=== PATIENT | female | born 1975 | race Caucasian/White ===

== ENCOUNTER 2020-01-06 08:08 | Outpatient (CLI) | payer MEDICAID, SELFPAY ==
--- NOTE | 2020-01-06 08:16 | ECG_ITS ---
[facility] Test Date: 2020-01-06 Pat Name: Yisel Alexander Department: Room: Gender: Female Transmission Repairer: : 1975 Requested By: Comfort Thompson Order Number: [id number] Claribel MD: Jeffrey Phan M.D. Interpretive Statements NAME OF STUDY: TREADMILL STRESS TEST INDICATION: Chest Pain RESULTS TO DR GONZALEZ EXERCISE TREADMILL STRESS ORDERING PHYSICIAN: Reyes CLINICAL INFORMATION: Chest pain INTERPRETATION: 1. The patient exercised for 8 minutes and 10 seconds on a Rolando protocol. She reached a maximum heart rate of 169 beats per minute, which is 97 % of her maximum predicted heart rate. The test was stopped due to achieving the desired heart rate. 2. The baseline electrocardiogram reveals sinus rhythm and is essentially normal tracing aside from poor R wave progression leads V1 and V2. 3. With exercise, there were no ST segment changes to suggest ischemia. 4. The resting blood pressure was 103/73. The maximum blood pressure was 161/74. In recovery the patient's blood pressure increased briefly to 152/104. It came back down to normal at the end of the examination. 5. At maximum exercise, the patient achieved 10.2 METs with a rate pressure product of 272. 6. The patient experienced no chest pain or arrhythmias during the examination. CONCLUSION: 1. Normal exercise treadmill test. 2. Average exercise capacity for age. 3. Normal blood pressure response to exercise. Electronically Signed On 01-06-2020 19:10:22 CDT by Jeffrey Phan M.D. [id number]
[2020-01-06 08:26] VITALS: BMI 29.0
[2020-01-06 08:56] VITALS: BP 125/75; PULSE 96
== END 2020-01-06 08:09 | disposition home or self-care (01) ==
LOC: CDL 08:12
PROVIDERS: Family Provider Nurse Practitioner Family; Visit Provider Nurse Practitioner Family
DX: R07.9 Chest pain, unspecified (principal)
CPT/HCPCS: 93017

== ENCOUNTER 2020-02-15 08:11 | Outpatient (CLI) | payer MEDICAID, SELFPAY ==
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
== END 2020-02-15 08:12 | disposition home or self-care (01) ==
LOC: RADSHAW 08:14
PROVIDERS: PCP Nurse Practitioner Family; Visit Provider Internal Medicine
DX: Z12.31 Encounter for screening mammogram for malignant neoplasm of breast (principal)
CPT/HCPCS: 77067

== ENCOUNTER 2020-02-17 08:37 | Outpatient (CLI) | payer MEDICAID, SELFPAY ==
--- NOTE | 2020-02-17 08:45 | USCV_ITS ---
Benjamin Yisel Age: 44 Gender: F : 1975 Exam Date: 02/17/2020 08:40 Ordering Phys: Jonny Chambers MD ([email or web address]) Technologist: Stacey Lorenzo Exam Location: [facility] [place] Indication: SOB BP: / HR: 71 Rhythm: Sinus Technical Quality: MEASUREMENTS (Male / Female) Normal Values 2D ECHO LV Diastolic Diameter PLAX 3.3 cm 4.2 - 5.9 / 3.9 - 5.3 cm LV Systolic Diameter PLAX 1.9 cm IVS Diastolic Thickness 1.1 cm 0.6 - 1.0 / 0.6 - 0.9 cm IVS Systolic Thickness 1.1 cm LVPW Diastolic Thickness 1.8 cm 0.6 - 1.0 / 0.6 - 0.9 cm LVPW Systolic Thickness 2.4 cm LVOT Diameter 2.0 cm LV Ejection Fraction 2D Teich 75.6 % LV Ejection Fraction MOD 2C 68.9 % LV Ejection Fraction 2C AL 69.4 % LA Diameter 2.8 cm LA Width 3.1 cm LA Height 3.3 cm RA Width 2.4 cm RA Height 3.5 cm Aorta at Sinotubular Diameter 3.0 cm M-MODE LV Diastolic Diameter MM 3.6 cm 4.2 - 5.9 / 3.9 - 5.3 cm LV Systolic Diameter MM 2.6 cm LV Ejection Fraction MM Teich 54.9 % IVS Diastolic Thickness MM 1.0 cm 0.6 - 1.0 / 0.6 - 0.9 cm IVS Systolic Thickness MM 1.1 cm LVPW Diastolic Thickness MM 1.0 cm 0.6 - 1.0 / 0.6 - 0.9 cm LVPW Systolic Thickness MM 1.1 cm Aortic Annulus Diameter 2.8 cm LA Ao Ratio MM 1.0 MV E Point Septal Separation 0.6 cm DOPPLER AV Peak Velocity 116.0 cm/s LVOT Peak Velocity 107.0 cm/s AV Area Cont Eq vti 2.9 cm squared AV Area Cont Eq pk 3.0 cm squared MV Area PHT 3.7 cm squared Mitral E to A Ratio 0.9 MV E' Velocity 71.0 cm/s TR Peak Velocity 269.0 cm/s TR Peak Gradient 28.9 mmHg TR Mean Velocity 177.0 cm/s TR Mean Gradient 13.4 mmHg TR Velocity Time Integral 67.1 cm TV Peak E Velocity 50.0 cm/s Right Atrial Pressure 3.0 mmHg Pulmonary Artery Systolic Pressu 31.9 mmHg PV Peak Velocity 62.0 cm/s RV Acceleration Time 0.1 s RV Ejection Time 0.4 s RV AcT/ET 0.4 FINDINGS Left Ventricle Normal left ventricular cavity size. Normal left ventricular systolic function. No regional wall motion abnormalities. Left ventricular ejection fraction is estimated at 54 %. Grade I/IV diastolic dysfunction (abnormal relaxation filling pattern), normal to mildly elevated filling pressures. Right Ventricle The right ventricle is normal in size and function. Right Atrium The right atrium is normal in size. Left Atrium The left atrium is normal in size. Mitral Valve Structurally normal mitral valve without significant stenosis or prolapse. There is no mitral regurgitation. Aortic Valve Structurally normal aortic valve without significant sclerosis or stenosis. There is no aortic regurgitation. Tricuspid Valve Structurally normal tricuspid valve without significant stenosis or regurgitation. Pulmonary artery systolic pressure is normal. Pulmonic Valve Structurally normal pulmonic valve without significant stenosis. There is no pulmonic regurgitation. Pericardium Normal pericardium without effusion. Aorta Normal ascending aorta dimension. CONCLUSIONS 1-Normal left ventricular cavity size. Normal left ventricular systolic function. No regional wall motion abnormalities. Left ventricular ejection fraction is estimated at 54 %. Grade I/IV diastolic dysfunction (abnormal relaxation filling pattern), normal to mildly elevated filling pressures. 2-There is no pericardial effusion. 3-No significant valve abnormalities. 4-Pulmonary artery systolic pressure is within normal limits. 5-Right atrial pressure is around 5 mm of mercury. 6-There are no prior echocardiogram studies to compare. Jonny Chambers MD (Electronically Signed) Final Date: 18 February 2020 14:35 S
== END 2020-02-17 08:38 | disposition home or self-care (01) ==
LOC: RAD 08:38
PROVIDERS: PCP Nurse Practitioner Family; Visit Provider Internal Medicine Cardiovascular Disease
DX: R06.02 Shortness of breath (principal); I51.81 Takotsubo syndrome
CPT/HCPCS: 93306

== ENCOUNTER 2020-07-08 12:54 | Outpatient (CLI) | payer MEDICARE, MEDICAID, SELFPAY ==
--- NOTE | 2020-07-08 13:23 | XR_ITS ---
WS: [id number] CERVICAL SPINE TECHNIQUE: 3 views of the cervical spine CLINICAL INFORMATION: BACK PAIN, NECK PAIN COMPARISON: None. FINDINGS: Straightening with slight reversal of the normal cervical lordosis. Normal C1-2 articulation. Normal prevertebral soft tissues. Normal dens. Mild spondylitic changes. XR/XR cervical spine 3V* 72074 IMPRESSION: 1. Straightening with slight reversal of the normal cervical lordosis. 2. Mild spondylitic changes. 3. Normal C1-2 articulation
--- NOTE | 2020-07-08 13:23 | XR_ITS ---
WS: [id number] LUMBAR SPINE TECHNIQUE: 3 views of the lumbar spine CLINICAL INFORMATION: BACK PAIN, NECK PAIN COMPARISON: None. FINDINGS: Five [id number]-[id number] lumbar vertebral bodies. Mild lumbar curve convex right. Disc space heights are well preserved. No compression fractures. No spondylolisthesis. Visualized sacroiliac joints are norm al. Normal visualized soft tissues. Partially visualized bowel gas pattern is normal. XR/XR lumbar spine 2-3V* 96600 IMPRESSION: 1. Mild lumbar curve convex right. 2. No acute compression fractures. 3. Mild facet arthropathy L5-S1. 4. Disc space heights and vertebral body heights are relatively well-preserved .
== END 2020-07-08 12:55 | disposition home or self-care (01) ==
LOC: RADWPI 13:01
PROVIDERS: PCP Nurse Practitioner Family; Visit Provider Nurse Practitioner Family
DX: M54.2 Cervicalgia (principal); M47.817 Spondylosis without myelopathy or radiculopathy, lumbosacral region
CPT/HCPCS: 72040; 72100

== ENCOUNTER 2020-08-18 11:59 | Emergency (ER) | payer OTHER, MEDICARE, MEDICAID, SELFPAY ==
[2020-08-18 12:31] VITALS: BP 133/80; PULSE 73; RESP 18; TEMP 36.6; O2SAT 97; BMI 28.3
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
[2020-08-18 14:17] VITALS: BP 133/80; PULSE 73; RESP 16; O2SAT 97
[2020-08-18 14:30] VITALS: BP 133/80; PULSE 73; RESP 16; O2SAT 97
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
== END 2020-08-18 16:14 | disposition home or self-care (01) ==
PROVIDERS: Emergency Provider Physician Assistant; PCP Nurse Practitioner Family
DX: S16.1XXA Strain of muscle, fascia and tendon at neck level, initial encounter (principal); S39.012A Strain of muscle, fascia and tendon of lower back, initial encounter; M25.511 Pain in right shoulder; Z87.891 Personal history of nicotine dependence; V89.2XXA Person injured in unspecified motor-vehicle accident, traffic, initial encounter
CPT/HCPCS: 72040; 72072; 72100; 73030; 73502; 99283

== ENCOUNTER 2021-02-17 08:08 | Outpatient (CLI) | payer MEDICARE, MEDICAID, SELFPAY ==
--- NOTE | 2021-02-17 08:00 | MR_ITS ---
WS: [id number] MRI HEAD WITH CONTRAST TECHNIQUE: Sagittal T1, T2 axial, T2 axial FLAIR, axial susceptibility weighted imaging, axial diffus ion weighted images, and coronal T2 images were obtained. Pre and post-T1 axial and post T1 coronal i mages. ADC and FSPGR images. CLINICAL INFORMATION: OCCIPITAL ALFONSO; FACIAL PAIN SYNDROME; DIZZINESS COMPARISON: MRI 2013. CT May 2019 FINDINGS: No evidence of restricted diffusion to suggest acute ischemia. Normal sequeira-white differentiation. No suspicious intracranial signal abnormalities. Normal posterior fossa. Normal vascular flow voids at t he skull base. No extra-axial fluid collections. No evidence of mass or mass effect. Paranasal sinuses and mastoid air cells well aerated. No hemosiderin on susceptibly weighted images. Normal optic chiasm and pituitary infundibulum. Cavernous sinuses and Meckel's cave appear normal. Tr igeminal nerve root entry zones appear normal. Temporal lobes and hippocampal formations are normal i n appearance. No abnormal intracranial enhancement. Normal visualized dural venous sinuses. MR/MR head wo/w con [id number] IMPRESSION: 1. No evidence restricted diffusion to suggest acute ischemia. 2. No suspicious intracranial signal abnormalities. 3. Normal optic chiasm and pituitary infundibulum. Normal visualized cavernous sinuses and Meckel's cave. 4. Temporal lobes and hippocampal formations are normal in appearance. 5. No abnormal intracranial enhancement. 6. No hemosiderin on the susceptibly weighted images. 7. No significant changes compared to 2014.
[2021-02-17] MEDS: gadobenate dimeglumine 20 mL vial IV (09:03)
== END 2021-02-17 08:09 | disposition home or self-care (01) ==
PROVIDERS: PCP Nurse Practitioner Family; Visit Provider Psychiatry & Neurology Neurology
DX: R51.9 Headache, unspecified (principal); R42 Dizziness and giddiness
CPT/HCPCS: 70553; A9577

== ENCOUNTER 2021-04-12 13:13 | Outpatient (CLI) | payer MEDICARE, MEDICAID, SELFPAY ==
--- NOTE | 2021-04-12 13:19 | XR_ITS ---
WS: [id number] ELBOW LEFT TECHNIQUE: 3 views of the left elbow CLINICAL INFORMATION: ELBOW JOINT PAIN,LEFT COMPARISON: None. FINDINGS: Mild dorsal soft tissue edema. No significant joint effusion. Distal humerus is normal in appearance. Normal radial head. Normal olecranon. No evidence of acute fracture dislocation. XR/XR elbow LT min 3V* 80158 IMPRESSION: Mild dorsal soft tissue edema. No acute fractures.
== END 2021-04-12 13:14 | disposition home or self-care (01) ==
PROVIDERS: PCP Nurse Practitioner Family; Visit Provider Nurse Practitioner Family
DX: M25.522 Pain in left elbow (principal); R60.0 Localized edema
CPT/HCPCS: 73080

== ENCOUNTER 2021-04-21 11:03 | Emergency (ER) | payer MEDICARE, MEDICAID, SELFPAY ==
[2021-04-21 11:41] VITALS: BP 112/79; PULSE 69; RESP 18; TEMP 37.1; O2SAT 95; BMI 31.9
[2021-04-21] MEDS: acetaminophen 500 mg Tablet 1000 MG PO (12:46)
[2021-04-21] MEDS: orphenadrine 30 mg/mL Inj 2 mL 60 MG IM (12:47)
[2021-04-21] MEDS: triamcinolone 40 mg/mL SDV IM (12:53)
--- NOTE | 2021-04-21 12:56 | XR_ITS ---
WS: [id number] LUMBAR SPINE: 3 VIEWS TECHNIQUE: AP, lateral and L5-S1 spot. HISTORY: back pain COMPARISON: 08/18/2020 Very mild straightening of the normal lumbar lordosis. Disc spaces are normal. No loss of disc space or vertebral body height. SI joints are symmetric bilaterally. No soft tissue abnormalities. XR/XR lumbar spine 2-3V* 04616 IMPRESSION: Normal lumbar spine.
--- NOTE | 2021-04-21 13:33 | W.ED.GENADLT ---
HPI - General Adult General: Chief complaint: Back Pain/Injury Stated complaint: FELL LAST PM/LOW BACK INJURY Time Seen by Provider: 04/21/21 11:49 History of Present Illness: HPI narrative: CC: Back pain HPI: [46]yo patient w/ episode radiating back pain pain presenting to the ED with acutely worsening chronic pain x 1 days. Pain started 1 day ago while patient was walking outside and stepped into a hole. Since then, she felt something popped in her back and developed sharp radiating back pain to the L thigh worse with ambulation ambulating. P Today, patients denies trauma to the back, fever/chill/IVDU, LE weakness, saddle anesthesia/bowel incontinence/bladder incontinence, or hx of recent weight loss or cancer. In addition, he does not have a history of kidney stone or urinary symptoms/hx of UTI. Onset: chronic, acutely worsening symptoms x 1 days Duration: 1days Location: Back pain with radiation to the L side Severity: moderate/severe Review of Systems Narrative: Constitutional: No fever, no chills. HEENT: No vision changes CV: No chest pain, no palpitations PULM: No cough, no dyspnea. GI: No abdominal pain, no N/V/D. : No dysuria MSKEL: No edema SKIN: No new rashes, no lesions. NEURO: No headache, no focal weakness. HEME: No visible bruises PSYCH: Normal mood BACK: [L]-sided lumbar paraspinal pain radiating to the affected L thigh PFSH ED PFSH: Medical History Chest pressure Shortness of breath Family History Sister Myocardial infarction Mother Cancer Colon CA COPD (chronic obstructive pulmonary disease) Father Diabetes Other CAD (coronary artery disease) Social History Smoking and tobacco status: former smoker Alcohol intake: never Physical Exam Narrative: EXAM NARRATIVE: Head: Atraumatic Eyes: PERRL, conjunctiva without injection ENT: Mucous membrane moist NECK: Supple without lymphadenopathy LUNGS: CTA CV: RRR ABDOMEN: Soft, nontender EXTREMITY: Normal ROM, 5/5 strength in hip/knee/ankle f/e bilaterally, sensation intact bilaterally in the LE SKIN: No rash or erythema NEURO: Awake and alert. No focal motor deficits. PSYCH: Normal mood and affect. : No saddle anesthesia BACK: No midline tenderness, no step off, obvious deformity, hip stable, []paraspinal lumbar tenderness with radiation to the [] side Course Vital Signs: Vital signs: Vital Signs Temperature 98.7 F 04/21/21 11:41 Pulse Rate 69 04/21/21 11:41 Respiratory Rate 18 04/21/21 11:41 Blood Pressure 112/79 04/21/21 11:41 Pulse Oximetry 95 04/21/21 11:41 MDM - General Adult MDM Narrative: Medical decision making narrative: [46]yo patient w/ hx of episodic back pain presenting to the ED with acute worsening lumbar pain with radiation to the L f leg 1 day, now has pain with ambulation. Neurological exam including LE exam intact. The Patient is able to bear weight on legs and ambulate with moderate pain. No red flags of IVDU/fever, hx or symptomatology of cancer w/ mets to the bones, neurological findings or bowel or bladder incontinence, or acute trauma/fracture of the vertebral columns. Workup: XR lumbar 3 views Intervention: Tylenol 500mg, Norflex, kenalog injection [1:45pm] On reassessment, the patient reports the pain is significantly improved with medications. Patient is now able to ambulate in the ED with only mild pain. At the present time, I have discussed the importance for the patient to follow up with orthopedics CANDICE and the patient agrees. No suspicion for acute cord compression at this time. XR did not show any signs of acute fracture. No suspicion for cauda equina or cord compression presently. I have given patient follow up with our case packer and sealer to be seen by our outpatient Orthopedic spine for evaluation of herniated disc and nerve impingement. Patient aware of a call from our case packer and sealer to schedule for appointment(s) and verbalizes understanding of the importance of following up. Rx: Tylenol, lidocaine patch and norflex PRN back pain Disposition: Discharge. Patient is given SRP for any focal weakness, intractable pain, fever/chill, any signs of bowel or bladder incontinence. Patient is instructed to follow up with the orthopedics provider. I have provided an additional orthopedic referral for the patient should the patient need it. Patient verbalizes understanding and plans to do so in the next fews. Imaging Data^: Other Imaging: Radiologist's impression: [facility] [place], [place] [address]PAcn ReportSigned Patient: Yisel Alexander #: [id number]: [id number]#:[id number]/Sex: 46 / FADM Date: 04/21/21Loc: ERRoom/Bed:Attending Dr: Ordering Provider/Ordering MD: Florentin Marie MD Date of Service: 04/21/21 Procedure(s): XR lumbar spine 2-3V* 17710 Accession Number(s): [id number] Report Number: [id number] WS: [id number] LUMBAR SPINE: 3 VIEWS TECHNIQUE: AP, lateral and L5-S1 spot. HISTORY: back pain COMPARISON: 08/18/2020 Very mild straightening of the normal lumbar lordosis. Disc spaces are normal. No loss of disc space or vertebral body height. SI joints are symmetric bilaterally. No soft tissue abnormalities. XR/XR lumbar spine 2-3V* [id number] IMPRESSION: Normal lumbar spine. Dictated By:Martina Cruz DOSigned By:Martina Cruz DOSigned Date/Time:04/21/21 1318DD/ 1317 Discharge Plan Discharge Patient Disposition: Home Clinical Impression: Lumbar radiculopathy, Back pain Condition: Stable Prescriptions: New acetaminophen 500 mg tablet 500 mg PO Q6H PRN (Reason: pain) 7 Days Qty: 28 RF: 0 orphenadrine citrate 100 mg tablet extended release 100 mg PO BID PRN (Reason: pain) 10 Days Qty: 20 RF: 0 lidocaine 5 % adhesive patch,medicated 1 patch topical DAILY PRN (Reason: pain) 10 Days Qty: 10 RF: 0 No Action sumatriptan succinate [Imitrex] 50 mg tablet See Rx Instructions PO .COMPLEX RF: 0 fluticasone propionate 50 mcg/actuation spray,suspension 1 spray INTRANASAL BID PRNRF: 0 nitroglycerin [Nitrostat] 0.4 mg tablet, sublingual 0.4 mg SUBLINGUAL Q5M PRN (Reason: chest pain) Qty: 25 RF: 6 metoprolol succinate 25 mg tablet extended release 24 hr 25 mg PO DAILY Qty: 30 RF: 6 magnesium oxide 400 mg magnesium capsule 400 mg PO DAILY Qty: 30 RF: 6 isosorbide mononitrate 30 mg tablet extended release 24 hr 15 mg PO BID Qty: 30 RF: 6 Discharge Orders: Discharge ED (Routine); Ordered 04/21/21 Ordered By: Florentin Marie Referrals: Comfort Thompson FNP [Primary Care Provider] - Discharge Diet: Advance as tolerated Discharge Activity: Resume usual activity Patient Instructions: Back Pain (ED) Activity Restrictions/Additional Instructions: Please come back to the emergency we have any weakness in your bladder or bowel, if you have any numbness, worsening pain, or any new or concerning complaints. Our case packer and sealer will have you follow-up with our Orthopedic spien doctor in the next few days. You would be expected to have a phone call with our case packer and sealer who will put you on the schedule. Coding Level of Care Code ED Inspector Bicycle for Nalini Walters
--- NOTE | 2021-04-21 14:16 | DCPLANNER ---
process improvement manager had message to schedule a follow up appointment for patient with ortho. process improvement manager called the ortho clinic, spoke with Estephanie, gave clinic patients information. process improvement manager was told that patients information would be printed and reviewed. Clinic will call patient with appointment information.
--- NOTE | 2021-07-09 16:14 | DCPLANNER ---
Patient had a follow up appointment scheduled with ortho - patient did attend appointment.
== END 2021-04-21 14:35 | disposition home or self-care (01) ==
PROVIDERS: Emergency Provider Emergency Medicine; PCP Nurse Practitioner Family
DX: M54.16 Radiculopathy, lumbar region (principal); Z87.891 Personal history of nicotine dependence
CPT/HCPCS: 72100; 96372; 99283; J2360; J3301

== ENCOUNTER → 2021-04-27 10:59 | Outpatient (BNVA) | payer MEDICARE, MEDICAID, SELFPAY | PROVIDERS: PCP Nurse Practitioner Family; Visit Provider Physician Assistant | DX: M54.16 Radiculopathy, lumbar region (principal) | CPT/HCPCS: 72120 ==

== ENCOUNTER 2021-05-23 06:00 | Outpatient (RCR) | payer MEDICARE, MEDICAID, SELFPAY | END 2021-06-16 23:59 | disposition home or self-care (01) | LOC: SPT 06:00 | PROVIDERS: PCP Nurse Practitioner Family; Referring Provider Physician Assistant; Visit Provider Physician Assistant | DX: M54.9 Dorsalgia, unspecified (principal) | CPT/HCPCS: 97110; 97161 ==

== ENCOUNTER 2021-06-07 10:19 | Outpatient (CLI) | payer MEDICARE, MEDICAID, SELFPAY ==
--- NOTE | 2021-06-07 10:34 | MM_ITS ---
WS: [id number] BILATERAL DIGITAL SCREENING MAMMOGRAPHY WITH CAD CLINICAL INFORMATION: SCREENING HISTORY: Screening mammogram. No current complaints. COMPARISON: February 15, 2020 TECHNIQUE: Bilateral CC and MLO views. FINDINGS: Scattered fibroglandular densities bilaterally. No suspicious focal mass, asymmetry, calcifications, or architectural distortion. No evidence of malignancy. MM/[place] [id number] IMPRESSION: BI-RADS: 1-Negative FOLLOW UP: 1 Year Follow-up Recommend return to annual screening mammography.
== END 2021-06-07 10:20 | disposition home or self-care (01) ==
PROVIDERS: PCP Nurse Practitioner Family; Visit Provider Nurse Practitioner Family
DX: Z12.31 Encounter for screening mammogram for malignant neoplasm of breast (principal)
CPT/HCPCS: 77067

== ENCOUNTER 2021-06-17 06:00 | Outpatient (RCR) | payer MEDICARE, MEDICAID, SELFPAY | END 2021-07-17 23:59 | disposition home or self-care (01) | LOC: SPT 06:00 | PROVIDERS: PCP Nurse Practitioner Family; Referring Provider Physician Assistant; Visit Provider Physician Assistant | DX: M54.9 Dorsalgia, unspecified (principal) | CPT/HCPCS: 97110 ==

== ENCOUNTER 2021-07-18 06:00 | Outpatient (RCR) | payer MEDICARE, MEDICAID, SELFPAY | END 2021-08-03 23:59 | disposition home or self-care (01) | LOC: SPT 06:00 | PROVIDERS: PCP Nurse Practitioner Family; Referring Provider Physician Assistant; Visit Provider Physician Assistant | DX: M54.9 Dorsalgia, unspecified (principal) | CPT/HCPCS: 97110 ==

== ENCOUNTER 2021-09-05 06:00 | Outpatient (RCR) | payer MEDICARE, MEDICAID, SELFPAY | END 2021-09-14 23:59 | disposition home or self-care (01) | LOC: SPT 06:00 | PROVIDERS: PCP Nurse Practitioner Family; Referring Provider Nurse Practitioner Family; Visit Provider Nurse Practitioner Family | DX: H81.12 Benign paroxysmal vertigo, left ear (principal) | CPT/HCPCS: 95992; 97110; 97162 ==

== ENCOUNTER → 2021-10-24 10:07 | Outpatient (BNVA) | payer MEDICARE, MEDICAID, SELFPAY | PROVIDERS: PCP Nurse Practitioner Family; Visit Provider Internal Medicine Cardiovascular Disease | DX: Z01.810 Encounter for preprocedural cardiovascular examination (principal); R00.2 Palpitations; R07.89 Other chest pain; R06.02 Shortness of breath; N05.5 Unspecified nephritic syndrome with diffuse mesangiocapillary glomerulonephritis; F17.200 Nicotine dependence, unspecified, uncomplicated | CPT/HCPCS: 99214 ==

== ENCOUNTER 2021-12-22 06:00 | Outpatient (RCR) | payer MEDICARE, MEDICAID, SELFPAY | END 2022-01-14 23:59 | disposition home or self-care (01) | LOC: SPT 06:00 | PROVIDERS: PCP Nurse Practitioner Family; Referring Provider Nurse Practitioner Family; Visit Provider Nurse Practitioner Family | DX: Z98.1 Arthrodesis status (principal); R29.898 Other symptoms and signs involving the musculoskeletal system; M48.061 Spinal stenosis, lumbar region without neurogenic claudication; M54.16 Radiculopathy, lumbar region | CPT/HCPCS: 97110; 97161 ==

== ENCOUNTER 2022-01-15 06:00 | Outpatient (RCR) | payer MEDICARE, MEDICAID, SELFPAY | END 2022-02-14 23:59 | disposition home or self-care (01) | LOC: SPT 06:00 | PROVIDERS: PCP Nurse Practitioner Family; Visit Provider Nurse Practitioner Family | DX: R29.898 Other symptoms and signs involving the musculoskeletal system (principal); M48.061 Spinal stenosis, lumbar region without neurogenic claudication; M54.16 Radiculopathy, lumbar region; Z98.1 Arthrodesis status | CPT/HCPCS: 97110 ==

== ENCOUNTER 2022-02-14 12:49 | Emergency (ER) | payer MEDICARE, MEDICAID, SELFPAY ==
[2022-02-14 13:16] VITALS: BP 111/78; PULSE 104; RESP 17; TEMP 37.7; O2SAT 95; BMI 32.5
--- NOTE | 2022-02-14 13:39 | ED_ITS ---
HPI - General Adult General: Chief complaint: Fever Stated complaint: Fever/Headache/Sore throat Time Seen by Provider: 02/14/22 13:25 History of Present Illness: Patient is a 46-year-old female with history of COPD, seasonal allergies presenting to the emergency room for evaluation of fever, headache, sore throat and nasal congestion since yesterday night. Patient tells me that yesterday she did not feel well and had body aches. Earlier today, patient noticed that all the symptoms worsened. Patient has any productive cough, shortness of breath, abdominal pain, loss of taste, diarrhea melena/hematochezia. Patient has no complaints. Patient has any sick contact at home. Patient has not been tested for COVID. Onset: yesterday night Duration:ongoing Location:home Severity:mild/moderate Associated symptoms: Reports malaise; Deny chest pain, dyspnea, nausea, rash, palpitations or vomiting Review of Systems Const: Reports: fever(s), chills, fatigue, malaise and other (+generalized weakness) Eyes: Denies: change in vision ENMT: Reports: throat pain, mouth pain (+sore throat) and other (+nasal c ongestion) Card: Denies: chest pain or palpitations Resp: Denies: dyspnea or non-productive cough GI: Denies: abdominal pain, nausea, vomiting or diarrhea : Denies: dysuria Musc: Denies: extremity pain Skin/Breast: Denies: rash or new lesions Neuro: Denies: weakness in extremities Psych: Reports: other (Normal mood) Germain/Lymph: Denies: easy bruising PFSH ED PFSH: Medical History Chest pressure Shortness of breath Family History Sister Myocardial infarction Mother Cancer Colon CA COPD (chronic obstructive pulmonary disease) Father Diabetes Other CAD (coronary artery disease) Social History Smoking and tobacco status: current every day smoker Alcohol intake: never Physical Exam Const: COMMON NORMALS: alert HENMT: COMMON NORMALS: atraumatic HEAD & SCALP: atraumatic MOUTH: moist mucous membranes not abnormal Eye: COMMON NORMALS: EOMs intact bilaterally and conjunctivae normal CONJUNCTIVA: Yes conjunctivae normal Neck/C-Spine: COMMON NORMALS: full ROM and supple Resp: COMMON NORMALS: normal respiratory effort and clear to auscultation bilaterally AUSCULTATION: clear to auscultation bilaterally Cardio: COMMON NORMALS: regular rate RATE: regular rate GI: COMMON NORMALS: Soft to palpation and non-tender PALPATION: Yes Soft to palpation Extremity: COMMON NORMALS: full ROM Neuro: SENSORIUM/ORIENTATION: Yes alert MOTOR EXAM: No Abnormal motor strength present and Other motor observations present (no focal motor deficits) Psych: COMMON NORMALS: speech normal SPEECH: Yes normal speech MOOD & AFFECT: Yes euthymic mood Course Vital Signs: Vital signs: Vital Signs Temperature 99.8 F H 02/14/22 13:16 Pulse Rate 104 H 02/14/22 13:16 Respiratory Rate 17 02/14/22 13:16 Blood Pressure 111/78 02/14/22 13:16 Pulse Oximetry 95 02/14/22 13:16 Oxygen Delivery Me thod 02/14/22 13:16 MDM - General Adult Medical Decision Making Patient is a 46-year-old female with history of COPD, seasonal allergies presenting to the emergency room for evaluation of fever, headache, sore throat and nasal congestion since yesterday night. On physical exam, patient has a low- grade fever 99.7. Patient was noted to be mildly tachycardic on arrival. Heart rate improved after IVF. White count 4.9. Symptoms are consistent with a viral infection at this time. Patient received IVF, Tylenol has been able to tolerate p.o. in the emergency r oom. Patient is COVID-positive today. Patient has no signs of respiratory distress. No signs of dehydration. At the present time, patient is a candidate for outpatient treatment including Paxlovid. Rx tylenol PRN fever, and zofran PRN nausea/vomiting, paxlovid for covid Disposition: Discharge. Patient counseled regarding diagnostic impression, treatment plan. Patient given ED strict return precautions to return for continuation, worsening, or development of new symptoms. Instructed to f/u w/ PCP regarding symptoms today. Patient verbalized understanding. Lab Data : 02/14/22 14:05 02/14/22 14:05 Laboratory Results WBC 4.9 10^3/uL (4.0-10.0) 02/14/22 14:05 RBC 3.89 10^6/uL (4.1-5.3) L 02/14/22 14:05 Hgb 12.3 g/dL (11.5-15.3) 02/14/22 14:05 Hct 36.1 % (37.0-47.0) L 02/14/22 14:05 MCV 92.8 fl (81-99) 02/14/22 14:05 MCH 31.6 pg (28.0-34.0) 02/14/22 14:05 MCHC 34.1 g/dL (30.0-36.0) 02/14/22 14:05 RDW 11.8 % (12.1-15.1) L 02/14/22 14:05 Plt Count 238 10^3/cmm (130-400) 02/14/22 14:05 MPV 9.4 fL (7.4-10.4) 02/14/22 14:05 Neut % (Auto) 71.7 % 02/14/22 14:05 Lymph % (Auto) 11.8 % 02/14/22 14:05 Beaver % (Auto) 15.5 % 02/14/22 14:05 Eos % (Auto) 0.2 % 02/14/22 14:05 Baso % (Auto) 0.4 % 02/14/22 14:05 Neut # (Auto) 3.51 10^3/uL (1.8-7.7) 02/14/22 14:05 Lymph # (Auto) 0.6 10^3/uL (0.8-4.8) L 02/14/22 14:05 Beaver # (Auto) 0.8 10^3/uL (0.2-0.9) 02/14/22 14:05 Eos # (Auto) 0.0 10^3/uL (0.0-0.8) 02/14/22 14:05 Baso # (Auto) 0.0 10^3/uL (0.0-0.1) 02/14/22 14:05 Nucleated RBC % (auto) 0 % 02/14/22 14:05 Nucleated RBCs # 0.0 /100WBC 02/14/22 14:05 Sodium 137 mmol/L (136-145) 02/14/22 14:05 Potassium 3.8 mmol/L (3.5-5.1) 02/14/22 14:05 Chloride 102 mmol/L (98-107) 02/14/22 14:05 Carbon Dioxide 26 mmol/L (22-29) 02/14/22 14:05 Anion Gap 12.8 (5-19) 02/14/22 14:05 BUN 11 mg/dL (6-20) 02/14/22 14:05 Creatinine 0.8 mg/dL (0.5-0.9) 02/14/22 14:05 GFR Calculation 76.6 mL/min (90-130) L 02/14/22 14:05 Glucose 102 mg/dL (65-115) 02/14/22 14:05 Calculated Osmolality 284 mOsm/kg (285-295) L 02/14/22 14:05 Calcium 8.4 mg/dL (8.5-10.5) L 02/14/22 14:05 Coronavirus 229E (PCR) Not detected (NOT DETECT) 02/14/22 14:05 Influenza Type A Ag Negative (Negative) 02/14/22 14:05 Influenza Type B Ag Negative (Negative) 02/14/22 14:05 SARS-CoV-2 (PCR) Detected (NOT DETECT) A 02/14/22 14:05 Discharge Plan Discharge Patient Disposition: Home Clinical Impression: Fever, Body aches, Sore throat Condition: Stable Prescriptions: New acetaminophen 500 mg tablet 500 mg PO Q6H PRN (Reason: pain) 5 Days Qty: 20 0RF ondansetron 4 mg tablet,disintegrating 4 mg PO TID PRN (Reason: nausea and vomiting) 4 Days Qty: 12 0RF Paxlovid (EUA) 150 mg x 2- 100 mg tablet See Rx Instructions .ROUTE .COMPLEX Qty: 30 0RF Rx Instructions: take TWO 150 mg tablets of nirmatrelvir with ONE 100 mg tablet of ritonavir twice daily for 5 days No Action magnesium oxide 400 mg magnesium capsule 400 mg PO DAILY Qty: 30 6RF metoprolol succinate 25 mg tablet extended release 24 hr 25 mg PO DAILY Qty: 90 4RF nitroglycerin [Nitrostat] 0.4 mg tablet, sublingual 0.4 mg SUBLINGUAL Q5M PRN (Reason: chest pain) Qty: 25 6RF Rx Instructions: do not exceed 3 doses per episode prednisone 20 mg tablet 40 mg PO DAILY Rx Instructions: rx filled 02/08/22 5d/s Tylenol Ex Str Rapid Release 500 mg Tablet 1,000 mg PO Q6H PRN (Reason: Pain) Vitamin D3 125 mcg (5,000 unit) Tablet 125 mcg PO DAILY Discharge Orders: Discharge ED (Routine); Ordered 02/14/22 Ordered By: Florentin Marie Referrals: Comfort Thompson FNP [Primary Care Provider] - Discharge Diet: Advance as tolerated Discharge Activity: Increase activity as tolerated Patient Instructions: COVID-19 (Coronavirus Disease 2019) (ED) Activity Restrictions/Additional Instructions: Come back to the emergency room if your symptoms worsen, have any shortness of breath, fever/chills, dehydration, inability tolerate food or drinks, any difficulty breathing, or any new or concerning complaints. Coding Level of Care Code ED Wash Oil Cooler Operator for Nalini Fwnakul Exam Comprehensive
[2022-02-14] MEDS: acetaminophen 500 mg Tablet 1000 MG PO (13:45)
[2022-02-14] MEDS: sodium chloride 0.9% 1,000 ML 999 ML IV (13:59)
[2022-02-14 14:12] LABS: Basophils % 0.4 %; Eosinophils % 0.2 %; Hematocrit 36.1 % (37.0-47.0); Hemoglobin 12.3 g/dL (11.5-15.3); Lymphocytes # 0.6 10^3/uL (0.8-4.8); Lymphocytes % 11.8 %; Mean Corpuscular HGB Conc 34.1 g/dL (30.0-36.0); Mean Corpuscular Hemoglobin 31.6 pg (28.0-34.0); Mean Corpuscular Volume 92.8 fl (81-99); Mean Platelet Volume 9.4 fL (7.4-10.4); Monocytes # 0.8 10^3/uL (0.2-0.9); Monocytes % 15.5 %; Neutrophils # 3.51 10^3/uL (1.8-7.7); Neutrophils % 71.7 %; Nucleated Red Blood Cells % 0 %; Platelet Count 238 10^3/cmm (130-400); Red Blood Count 3.89 10^6/uL (4.1-5.3); Red Cell Distribution Width 11.8 % (12.1-15.1); White Blood Count 4.9 10^3/uL (4.0-10.0)
[2022-02-14 14:34] LABS: Anion Gap 12.8 (5-19); Blood Urea Nitrogen 11 mg/dL (6-20); Calcium 8.4 mg/dL (8.5-10.5); Carbon Dioxide 26 mmol/L (22-29); Chloride 102 mmol/L (98-107); Glomerular Filtration Rate 76.6 mL/min (90-130); Glucose 102 mg/dL (65-115); Osmolality Calculated 284 mOsm/kg (285-295); Potassium 3.8 mmol/L (3.5-5.1); Sodium 137 mmol/L (136-145)
[2022-02-14 14:35] LABS: Influenza A by IFA Negative (Negative); Influenza B by IFA Negative (Negative)
[2022-02-14 16:00] LABS: Adenovirus Not Detected (NOT DETECT); Chlamydia Pneumoniae Not Detected (NOT DETECT); Coronavirus 229E,HKU1,NL63,OC4 Not Detected (NOT DETECT); Human Metapneumovirus Not Detected (NOT DETECT); Human Rhinovirus/Enterovirus Not Detected (NOT DETECT); Influenza A Not Detected (NOT DETECT); Influenza A H1 Not Detected (NOT DETECT); Influenza A H1-2009 Not Detected (NOT DETECT); Influenza A H3 Not Detected (NOT DETECT); Influenza B Not Detected (NOT DETECT); Mycoplasma Pneumoniae Not Detected (NOT DETECT); Parainfluenza Virus Type 1 Not Detected (NOT DETECT); Parainfluenza Virus Type 2 Not Detected (NOT DETECT); Parainfluenza Virus Type 3 Not Detected (NOT DETECT); Parainfluenza Virus Type 4 Not Detected (NOT DETECT); Respiratory Syncytial Virus A Not Detected (NOT DETECT); Respiratory Syncytial Virus B Not Detected (NOT DETECT); SARS-COV-2 Detected (NOT DETECT)
[2022-02-14 16:20] VITALS: BP 117/69; PULSE 88; RESP 17; TEMP 37.1; O2SAT 96
[2022-02-14 16:25] VITALS: BP 117/69; PULSE 88; RESP 17; TEMP 37.1; O2SAT 96
== END 2022-02-14 16:27 | disposition home or self-care (01) ==
PROVIDERS: Emergency Provider Emergency Medicine; PCP Nurse Practitioner Family
DX: U07.1 COVID-19 (principal); F17.210 Nicotine dependence, cigarettes, uncomplicated
CPT/HCPCS: 80048; 85025; 87635; 87804; 99283; J7030

== ENCOUNTER 2022-02-15 06:00 | Outpatient (RCR) | payer MEDICARE, MEDICAID, SELFPAY | END 2022-03-16 23:59 | disposition home or self-care (01) | LOC: SPT 06:00 | PROVIDERS: PCP Nurse Practitioner Family; Visit Provider Nurse Practitioner Family | DX: Z98.1 Arthrodesis status (principal); R29.898 Other symptoms and signs involving the musculoskeletal system; M48.061 Spinal stenosis, lumbar region without neurogenic claudication; M54.16 Radiculopathy, lumbar region | CPT/HCPCS: 97110 ==

== ENCOUNTER 2022-03-17 06:00 | Outpatient (RCR) | payer MEDICARE, SELFPAY | END 2022-04-16 23:59 | disposition home or self-care (01) | LOC: SPT 06:00 | PROVIDERS: PCP Nurse Practitioner Family; Visit Provider Nurse Practitioner Family | DX: Z47.89 Encounter for other orthopedic aftercare (principal); M62.81 Muscle weakness (generalized) | CPT/HCPCS: 97110 ==

== ENCOUNTER 2022-04-17 06:00 | Outpatient (RCR) | payer MEDICARE, SELFPAY | END 2022-05-16 23:59 | disposition home or self-care (01) | LOC: SPT 06:00 | PROVIDERS: PCP Nurse Practitioner Family; Visit Provider Nurse Practitioner Family | DX: Z98.1 Arthrodesis status (principal); R29.898 Other symptoms and signs involving the musculoskeletal system; M48.061 Spinal stenosis, lumbar region without neurogenic claudication; M54.16 Radiculopathy, lumbar region | CPT/HCPCS: 97110 ==

== ENCOUNTER 2022-07-24 09:58 | Outpatient (CLI) | payer MEDICARE, MEDICAID, SELFPAY ==
--- NOTE | 2022-07-24 10:14 | MM_ITS ---
WS: [id number] BILATERAL SCREENING DIGITAL TOMOSYNTHESIS MAMMOGRAM WITH CAD HISTORY: SCREENING COMPARISON: 06/07/2021 and 02/15/2020 Bilateral CC and MLO views with tomosynthesis and synthetic mammography submitted. Computer aided det ection analyzed. Breast composition: There are scattered areas of fibroglandular density. No suspicious masses, microc alcifications or architectural distortion. MM/[place] [id number] IMPRESSION: BI-RADS: 1-Negative FOLLOW UP: 1 Year Follow-up
== END 2022-07-24 09:59 | disposition home or self-care (01) ==
LOC: RAD 09:59
PROVIDERS: PCP Nurse Practitioner Family; Visit Provider Family Medicine
DX: Z12.31 Encounter for screening mammogram for malignant neoplasm of breast (principal)
CPT/HCPCS: 77063; 77067

== ENCOUNTER → 2022-08-28 15:29 | Outpatient (BNVA) | payer MEDICARE, MEDICAID, SELFPAY | PROVIDERS: PCP Nurse Practitioner Family; Visit Provider Internal Medicine Cardiovascular Disease | DX: R00.2 Palpitations (principal); R07.89 Other chest pain; N05.5 Unspecified nephritic syndrome with diffuse mesangiocapillary glomerulonephritis; R06.02 Shortness of breath; F17.200 Nicotine dependence, unspecified, uncomplicated | CPT/HCPCS: 93242; 99214 ==

== ENCOUNTER 2022-09-11 16:17 | Outpatient (CLI) | payer MEDICARE, MEDICAID, SELFPAY ==
--- NOTE | 2022-09-11 16:46 | XR_ITS ---
WS: [id number] Exam: XR chest 2V* [id number] Date/Time of Exam: 09/11/2022 4:54 PM Reason For Exam: CHEST PRESSURE Comparison 03/09/2019. Findings: The lungs are clear and fully expanded. Costophrenic angles are sharp. No infiltrates. Bronchovascula r relief appears normal. Cardiac silhouette is unremarkable. Bony elements are intact. XR/XR chest 2V* [id number] IMPRESSION: Unremarkable chest radiograph.
== END 2022-09-11 16:18 | disposition home or self-care (01) ==
LOC: RAD 16:21
PROVIDERS: PCP Nurse Practitioner Family; Visit Provider Family Medicine
DX: R07.89 Other chest pain (principal)
CPT/HCPCS: 71046

== ENCOUNTER 2022-09-20 20:00 | Outpatient (CLI) | payer MEDICARE, MEDICAID, SELFPAY | END 2022-09-20 20:01 | disposition home or self-care (01) | LOC: SLEEP 09-21 05:57 | PROVIDERS: PCP Nurse Practitioner Family; Visit Provider Family Medicine | DX: R06.83 Snoring (principal); R53.83 Other fatigue; G47.33 Obstructive sleep apnea (adult) (pediatric) | CPT/HCPCS: 95810 ==

== ENCOUNTER 2023-01-28 11:49 | Emergency (ER) | payer MEDICARE, MEDICAID, SELFPAY ==
[2023-01-28 12:18] VITALS: BP 168/80; PULSE 80; O2SAT 99
[2023-01-28 12:26] LABS: Basophils % 0.5 %; Eosinophils % 1.1 %; Hematocrit 41.3 % (37.0-47.0); Hemoglobin 13.9 g/dL (11.5-15.3); Lymphocytes # 1.4 10^3/uL (0.8-4.8); Lymphocytes % 37.4 %; Mean Corpuscular HGB Conc 33.7 g/dL (30.0-36.0); Mean Corpuscular Hemoglobin 31.6 pg (28.0-34.0); Mean Corpuscular Volume 93.9 fl (81-99); Mean Platelet Volume 8.8 fL (7.4-10.4); Monocytes # 0.4 10^3/uL (0.2-0.9); Monocytes % 10.7 %; Neutrophils # 1.83 10^3/uL (1.8-7.7); Nucleated Red Blood Cells % 0 %; Platelet Count 274 10^3/cmm (130-400); Red Cell Distribution Width 11.4 % (12.1-15.1); White Blood Count 3.7 10^3/uL (4.0-10.0)
[2023-01-28 12:33] VITALS: TEMP 36.9
--- NOTE | 2023-01-28 12:34 | ED_ITS ---
HPI - General Adult General: Chief complaint: General Medical Stated complaint: physician sent, possible kidney failure Time Seen by Provider: 01/28/23 11:54 Source: patient Mode of arrival: ambulatory Limitations: no limitations History of Present Illness: Patient is a 47-year-old female with a history of membranoproliferative glomerulonephritis being followed by [facility] here after she was called with critically high creatinine levels after a routine lab draw performed on 01/24. She states she gets labs drawn approximately a week prior to upcoming nephrology appointments-gets these done here in [place]. She states she has an appointment in 2 days thus had labs drawn last week. She got a call this morning stating her creatinine was over 9.0 and her phosphorus w as high and that she needed to immediately come to the emergency department. Patient states she's never had abnormal BUN/Cr before. She is not on dialysis. No new medications recently. States she feels very anxious currently because they told her she was in acute renal failure. Relieving factors: none Exacerbating factors: none Associated symptoms: Reports no associated symptoms; Deny chest pain, dyspnea, headache(s), malaise, nausea, rash, palpitations, syncope or vomiting Treatments prior to arrival: none Review of Systems Const: Denies: fever(s), chills, body aches, fatigue or malaise Eyes: Denies: change in vision or blurry vision Card: Denies: chest pain, palpitations, edema, lightheadedness, syncope or pre-syncope Resp: Denies: dyspnea GI: Denies: nausea or vomiting : Denies: flank pain, difficulty voiding, dysuria, urinary frequency, urinary urgency, urinary hesitancy, oliguria or hematuria Musc: Denies: neck pain, back pain, extremity pain or joint pain Skin/Breast: Denies: rash Neuro: Denies: headache(s) or dizziness Psych: Reports: anxiety PFSH ED PFSH: Medical History Chest pressure Shortness of breath Family History Sister Myocardial infarction Mother Cancer Colon CA COPD (chronic obstructive pulmonary disease) Father Diabetes Other CAD (coronary artery disease) Social History Smoking and tobacco status: current every day smoker Alcohol intake: never Substance/Drug Use: never Physical Exam Const: COMMON NORMALS: average body habitus, patient oriented x3, no limitations, healthy appearing, alert and well nourished GENERAL APPEARANCE: cooperative and anxious ORIENTATION/CONSCIOUSNESS: Yes awake, Yes oriented to person, Yes oriented to place and Yes oriented to time Resp: COMMON NORMALS: normal respiratory effort and clear to auscultation bila terally AUSCULTATION: clear to auscultation bilaterally Cardio: COMMON NORMALS: regular rate and regular rhythm RATE: regular rate RHYTHM: regular rhythm Extremity: COMMON NORMALS: normal to inspection GENERAL: Yes normal exam except as noted Neuro: COMMON NORMALS: patient oriented x3, moves all extremities, no focal motor deficits and no sensory deficits noted SENSORIUM/ORIENTATION: Yes alert, Yes oriented to person, Yes oriented to place and Yes oriented to time Skin: COMMON NORMALS: no rashes or lesions noted GENERAL SKIN EXAM: no rashes or lesions noted Course Vital Signs: Vital signs: Vital Signs Temperature 98.4 F 01/28/23 12:33 Pulse Rate 79 01/28/23 12:48 Blood Pressure 168/80 01/28/23 12:18 Pulse Oximetry 98 01/28/23 12:48 [facility] - General Adult Medical Decision Making I highly suspect lab error as the culprit of patient's abnormal creatinine and phosphorus as these laboratory values are completely normal today. Previous lab values obtained through not only our system but also through [facility] and her creatinine today of 0.8 is consistent with her baseline. She has appointment with offset duplicating machine operator on Saturday. She is stable for discharge with instructions to follow up then. Lab Data 01/28/23 12:18 01/28/23 12:18 Laboratory Results WBC 3.7 10^3/uL (4.0-10.0) L 01/28/23 12:18 RBC 4.40 10^6/uL (4.1-5.3) 01/28/23 12:18 Hgb 13.9 g/dL (11.5-15.3) 01/28/23 12:18 Hct 41.3 % (37.0-47.0) 01/28/23 12:18 MCV 93.9 fl (81-99) 01/28/23 12:18 MCH 31.6 pg (28.0-34.0) 01/28/23 12:18 MCHC 33.7 g/dL (30.0-36.0) 01/28/23 12:18 RDW 11.4 % (12.1-15.1) L 01/28/23 12:18 Plt Count 274 10^3/cmm (130-400) 01/28/23 12:18 MPV 8.8 fL (7.4-10.4) 01/28/23 12:18 Neut % (Auto) 50.0 % 01/28/23 12:18 Lymph % (Auto) 37.4 % 01/28/23 12:18 Catron % (Auto) 10.7 % 01/28/23 12:18 Eos % (Auto) 1.1 % 01/28/23 12:18 Baso % (Auto) 0.5 % 01/28/23 12:18 Neut # (Auto) 1.83 10^3/uL (1.8-7.7) 01/28/23 12:18 Lymph # (Auto) 1.4 10^3/uL (0.8-4.8) 01/28/23 12:18 Catron # (Auto) 0.4 10^3/uL (0.2-0.9) 01/28/23 12:18 Eos # (Auto) 0.0 10^3/uL (0.0-0.8) 01/28/23 12:18 Baso # (Auto) 0.0 10^3/uL (0.0-0.1) 01/28/23 12:18 Nucleated RBC % (auto) 0 % 01/28/23 12:18 Nucleated RBCs # 0.0 /100WBC 01/28/23 12:18 Sodium 143 mmol/L (136-145) 01/28/23 12:18 Potassium 4.4 mmol/L (3.5-5.1) 01/28/23 12:18 Chloride 106 mmol/L (98-107) 01/28/23 12:18 Carbon Dioxide 27 mmol/L (22-29) 01/28/23 12:18 Anion Gap 14.4 (5-19) 01/28/23 12:18 BUN 11 mg/dL (6-20) 01/28/23 12:18 Creatinine 0.8 mg/dL (0.5-0.9) 01/28/23 12:18 GFR Calculation 76.2 mL/min (90-130) L 01/28/23 12:18 Glucose 102 mg/dL (65-115) 01/28/23 12:18 Calculated Osmolality 296 mOsm/kg (285-295) H 01/28/23 12:18 Calcium 9.1 mg/dL (8.5-10.5) 01/28/23 12:18 Phosphorus 2.8 mg/dL (2.5-4.5) 01/28/23 12:18 Magnesium 1.9 mg/dL (1.7-2.3) 01/28/23 12:18 Total Bilirubin 1.0 mg/dL (0.15-1.2) 01/28/23 12:18 AST 21 U/L (0-32) 01/28/23 12:18 ALT 22 U/L (0-33) 01/28/23 12:18 Alkaline Phosphatase 75 U/L (35-105) 01/28/23 12:18 Total Protein 7.4 g/dL (6.6-8.7) 01/28/23 12:18 Albumin 4.7 g/dL (3.5-5.2) 01/28/23 12:18 Globulin 2.7 g/dL (1.3-4.6) 01/28/23 12:18 Discharge Plan Discharge Patient Disposition: Home Clinical Impression: 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 Condition: Stable Prescriptions: No Action magnesium oxide 400 mg magnesium capsule 400 mg PO DAILY Qty: 30 6RF nitroglycerin [Nitrostat] 0.4 mg tablet, sublingual 0.4 mg SUBLINGUAL Q5M PRN (Reason: chest pain) Qty: 25 6RF Rx Instructions: do not exceed 3 doses per episode metoprolol succinate 25 mg tablet extended release 24 hr 25 mg PO DAILY Qty: 90 4RF acetaminophen [Tylenol Ex Str Rapid Release] 500 mg Tablet 1,000 mg PO Q6H PRN (Reason: Pain) Discharge Orders: Discharge ED (Routine); Ordered 01/28/23 Ordered By: Lea Ramesh Referrals: Comfort Thompson FNP [Primary Care Provider] - Activity Restrictions/Additional Instructions: As we discussed your BUN/Cr as well as your magnesium, phosphorus, and other electrolytes were all normal on today's visit. You may follow-up with your offset duplicating machine operator as scheduled on Saturday. Coding Level of Care Code ED Platform Engineer for Nalini Walters
[2023-01-28 12:42] LABS: Alanine Aminotransferase 22 U/L (0-33); Albumin Level 4.7 g/dL (3.5-5.2); Alkaline Phosphatase 75 U/L (35-105); Anion Gap 14.4 (5-19); Aspartate Amino Transferase 21 U/L (0-32); Blood Urea Nitrogen 11 mg/dL (6-20); Calcium 9.1 mg/dL (8.5-10.5); Carbon Dioxide 27 mmol/L (22-29); Chloride 106 mmol/L (98-107); Globulin 2.7 g/dL (1.3-4.6); Glomerular Filtration Rate 76.2 mL/min (90-130); Glucose 102 mg/dL (65-115); Osmolality Calculated 296 mOsm/kg (285-295); Potassium 4.4 mmol/L (3.5-5.1); Sodium 143 mmol/L (136-145); Total Protein 7.4 g/dL (6.6-8.7)
[2023-01-28 12:48] VITALS: PULSE 79; O2SAT 98
[2023-01-28 12:49] LABS: Magnesium 1.9 mg/dL (1.7-2.3); Phosphorus 2.8 mg/dL (2.5-4.5)
== END 2023-01-28 13:24 | disposition home or self-care (01) ==
PROVIDERS: Emergency Provider Physician Assistant; PCP Nurse Practitioner Family
DX: N05.5 Unspecified nephritic syndrome with diffuse mesangiocapillary glomerulonephritis (principal); F17.210 Nicotine dependence, cigarettes, uncomplicated
CPT/HCPCS: 36415; 80053; 83735; 84100; 85025; 99283

== ENCOUNTER → 2023-03-12 13:51 | Outpatient (BNVA) | payer MEDICARE, MEDICAID, SELFPAY | PROVIDERS: PCP Nurse Practitioner Family; Visit Provider Internal Medicine Cardiovascular Disease | DX: R06.02 Shortness of breath (principal); N05.5 Unspecified nephritic syndrome with diffuse mesangiocapillary glomerulonephritis; R00.2 Palpitations; R07.89 Other chest pain; F17.210 Nicotine dependence, cigarettes, uncomplicated | CPT/HCPCS: 36415; 80048; 83880; 99214 ==

== ENCOUNTER → 2023-08-14 08:36 | Outpatient (BNVA) | payer MEDICARE, SELFPAY | PROVIDERS: PCP Nurse Practitioner Family; Referring Provider Nurse Practitioner Family; Visit Provider Surgery | DX: R10.13 Epigastric pain (principal); R10.11 Right upper quadrant pain | CPT/HCPCS: 99204 ==

== ENCOUNTER 2023-08-15 08:02 | Outpatient (CLI) | payer MEDICARE, SELFPAY ==
--- NOTE | 2023-08-15 08:05 | CT_ITS ---
WS: [id number] LDCT LUNG CANCER SCREENING HISTORY: NICOTINE DEPENDENCE, CIGARETTES TECHNIQUE: Axial imaging performed from the apices to 1 cm below the costophrenic angles. Coronal and sagittal reformats are submitted with axial MIP series. All CT scans at [facility] use at least one of these dose optimization techniques: automated exposure control; mA and/or kV adjustment per patient size (includes targeted exams where dose is matched to clinical indication); or iterativ e reconstruction. DLP: 67.01 mGy.cm DIvol: Mean CTDIvol: 1.30 (mGy) COMPARISON: CT 09/28/2005 Diagnostic quality: Satisfactory Lungs: Lungs are well aerated. Long-term stability 3 mm central RIGHT fissural nodule. No new mass or nodule. No endobronchial lesions. Heart: Normal size heart with no pericardial effusion.. Other findings: No mediastinal or hilar adenopathy. Normal aorta. Normal pulmonary artery. No chest w all abnormality. Small hiatal hernia. IMPRESSION: CT/CT lung screening [id number] LUNG-RADS: 2-Benign Appearance or Behavior FOLLOW UP: 12 Month: Continue annual screening with LDCT OTHER FINDINGS (S MODIFIER): None.
== END 2023-08-15 08:03 | disposition home or self-care (01) ==
LOC: RAD 08:03
PROVIDERS: PCP Nurse Practitioner Family; Visit Provider Nurse Practitioner Family
DX: Z12.2 Encounter for screening for malignant neoplasm of respiratory organs (principal); F17.210 Nicotine dependence, cigarettes, uncomplicated; R91.1 Solitary pulmonary nodule
CPT/HCPCS: 71271

== ENCOUNTER 2023-09-10 08:01 | Outpatient (CLI) | payer MEDICARE, SELFPAY ==
--- NOTE | 2023-09-10 08:15 | US_ITS ---
WS: [id number] Complete ABDOMINAL ULTRASOUND HISTORY: RUQ abdominal pain COMPARISON: 08/16/2017 Liver: 15.2 cm in length. Normal size liver and echogenicity. No bile duct dilatation or mass. Portal Vein: Normal hepatopetal flow with monophasic waveform. Gallbladder: Normally distended gallbladder with no stones or wall thickening. CBD: 0.4 cm Pancreas: Normal size and echogenicity. Right kidney: 10.5 cm x 3.5 x 4.6 cm. Cortex:1.2 cm. Normal size and echogenicity. No hydronephrosis or mass. Left kidney: 10.5 cm x 3.8 cm x 4.7 cm. Cortex: 1.2 cm. Normal size and echogenicity. No hydronephrosis or mass. Spleen: 9.1 cm. Normal size and echogenicity. Aorta and IVC: Unremarkable abdominal aorta and IVC. Impression: Normal complete abdomen ultrasound.
== END 2023-09-10 08:02 | disposition home or self-care (01) ==
LOC: RAD 08:01
PROVIDERS: PCP Nurse Practitioner Family; Visit Provider Surgery
DX: R10.11 Right upper quadrant pain (principal)
CPT/HCPCS: 76700

== ENCOUNTER → 2024-03-10 14:10 | Outpatient (BNVA) | payer MEDICARE, SELFPAY | PROVIDERS: PCP Nurse Practitioner Family; Visit Provider Internal Medicine Cardiovascular Disease | DX: R00.2 Palpitations (principal); N05.5 Unspecified nephritic syndrome with diffuse mesangiocapillary glomerulonephritis; R06.02 Shortness of breath; R03.0 Elevated blood-pressure reading, without diagnosis of hypertension; R07.9 Chest pain, unspecified; F17.200 Nicotine dependence, unspecified, uncomplicated | CPT/HCPCS: 99214 ==

== ENCOUNTER 2024-12-23 16:24 | Outpatient (CLI) | payer MEDICARE, SELFPAY ==
--- NOTE | 2024-12-23 16:38 | XR_ITS ---
WS: [id number] Exam: XR foot RT min 3V* [id number] Date/Time of Exam: 12/23/2024 4:43 PM Reason For Exam: PAIN IN RIGHT FOOT Comparison 01/27/2014. No acute fracture. The joints are well-maintained. No soft tissue foreign bodies. XR/XR foot RT min 3V* [id number] IMPRESSION: 1. Negative RIGHT foot.
== END 2024-12-23 16:25 | disposition home or self-care (01) ==
PROVIDERS: PCP Nurse Practitioner Family; Visit Provider Nurse Practitioner Family
DX: M79.671 Pain in right foot (principal)
CPT/HCPCS: 73630

== ENCOUNTER 2025-04-08 14:08 | Outpatient (CLI) | payer MEDICARE, SELFPAY ==
--- NOTE | 2025-04-08 14:16 | MM_ITS ---
WS: [id number] SCREENING DIGITAL BREAST TOMOSYNTHESIS MAMMOGRAM WITH CAD HISTORY: SCREENING COMPARISON: 07/24/2022, 06/07/2021 Bilateral CC and MLO with tomosynthesis and synthetic mammography submitted. Computer aided detection analyzed. Breast composition: There are scattered areas of fibroglandular density. Increasing irregular asymmetry anterior RIGHT breast just above and lateral to the nipple line. No additional suspicious abnormalities. MM/MM scr BI tomosynthesis [id number] IMPRESSION: BI-RADS: 0 - Incomplete: Need additional imaging evaluation. FOLLOW UP: Need Additional Imaging RIGHT breast: Spot compression views (CC and MLO). True ML. Ultrasound to follo w if abnormality persists.
== END 2025-04-08 14:09 | disposition home or self-care (01) ==
LOC: RAD 14:09
PROVIDERS: PCP Nurse Practitioner Family; Visit Provider Nurse Practitioner Family
DX: Z12.31 Encounter for screening mammogram for malignant neoplasm of breast (principal); R92.323 Mammographic fibroglandular density, bilateral breasts; N64.89 Other specified disorders of breast
CPT/HCPCS: 77063; 77067

== ENCOUNTER 2025-04-19 10:50 | Outpatient (CLI) | payer MEDICARE, SELFPAY ==
--- NOTE | 2025-04-19 11:00 | MM_ITS ---
WS: [id number] ADDITIONAL VIEWS RIGHT MAMMOGRAM WITH DIGITAL BREAST TOMOSYNTHESIS. HISTORY: ABNORMAL R MAMMOGRAM COMPARISON: 04/08/2025, 07/24/2022, 06/07/2021 Spot compression views RIGHT breast in CC, MLO projections and true ML submitted with digital breast tomosynthesis and SM. Breast composition: There are scattered areas of fibroglandular density. The asymmetry noted in the anterior RIGHT breast just lateral to the nipple line resolves with additional imaging. This was superimposed fibroglandular soft tissue. No distortion or residual asymmetry. No ultrasound necessary. MM/MM diag RT tomosynthesis [id number] IMPRESSION: BI-RADS: 2 - Benign. FOLLOW UP: 1 Year Follow-up Asymmetry in the anterior RIGHT breast resolves with additional imaging. Return to annual screening mammography.
== END 2025-04-19 10:51 | disposition home or self-care (01) ==
PROVIDERS: PCP Nurse Practitioner Family; Visit Provider Nurse Practitioner Family
DX: Z12.31 Encounter for screening mammogram for malignant neoplasm of breast (principal); R92.323 Mammographic fibroglandular density, bilateral breasts
CPT/HCPCS: 77061; G0279